=== PATIENT | female | born 1940 ===

== ENCOUNTER 2016-07-16 16:37 | Emergency (ER) | payer MEDICARE, BC ==
[2016-07-16] MEDS ORDERED: CARDIZEM CD240 M1 PO (17:04)
[2016-07-16] MEDS ORDERED: PRINIVIL20 M1 PO (17:04)
[2016-07-16] MEDS ORDERED: ASPIRIN81 M1 PO (17:05)
[2016-07-16] MEDS ORDERED: FUROSEMIDE20 M1 PO (17:05)
[2016-07-16] MEDS ORDERED: VITAMIN B122500 MC1 (17:05)
[2016-07-16] MEDS ORDERED: AMBIEN5 M1 PO (17:05)
[2016-07-16] MEDS ORDERED: STEROID EYE (17:05)
[2016-07-16] MEDS ORDERED: VITAMIN D31000 UNI3 PO (17:05)
== END 2016-07-16 19:20 ==
LOC: EDMED 16:37
PROC: 0HQGXZZ Repair Left Hand Skin, External Approach (ICD-10-PCS; principal; 2016-07-16)
DX: S61.412A Laceration without foreign body of left hand, initial encounter (principal); S93.402A Sprain of unspecified ligament of left ankle, initial encounter; S40.022A Contusion of left upper arm, initial encounter; I10 Essential (primary) hypertension; Z23 Encounter for immunization; Z79.82 Long term (current) use of aspirin; Z79.899 Other long term (current) drug therapy; W10.9XXA Fall (on) (from) unspecified stairs and steps, initial encounter; Y92.019 Unspecified place in single-family (private) house as the place of occurrence of the external cause